=== PATIENT | male | born 1990 | race Caucasian/White ===

== ENCOUNTER 2017-10-09 06:02 | Day surgery (SDC) | payer OTHER ==
[2017-10-09] MEDS ORDERED: PROPOFOL 60 ML (07:22)
[2017-10-09] MEDS ORDERED: LIDOCAINE 2% (SDV) 5 ML INJ (07:22)
[2017-10-09] MEDS ORDERED: MIDAZOLAM 1 MG/ML 2 ML INJ (07:38)
== END 2017-10-09 11:20 | disposition home or self-care (01) ==
LOC: GIL 06:02
DX: K51.90 Ulcerative colitis, unspecified, without complications (principal)
CPT/HCPCS: 45378; 88305

== ENCOUNTER 2018-07-27 15:23 | Emergency (ER) | payer OTHER ==
[2018-07-27] MEDS: METHYLPREDNISOLONE 125 MG INJ IM (17:28)
== END 2018-07-27 17:33 | disposition home or self-care (01) ==
LOC: FTE 15:23
DX: K51.919 Ulcerative colitis, unspecified with unspecified complications (principal)
CPT/HCPCS: 96372; 99284-25

== ENCOUNTER 2019-01-26 11:57 | Emergency (ER) | payer OTHER ==
[2019-01-26] MEDS: ONDANSETRON 4 MG INJ IV (12:36)
[2019-01-26] MEDS: morphine 4 MG/ML VIAL IV (12:36)
[2019-01-26] MEDS: SOD CHLORIDE 0.9% 1,000 ML IV (12:36)
[2019-01-26 12:42] LABS: ADD MAN DIFF? NO
[2019-01-26 12:48] LABS: BASOPHIL # 0.1 10^3/ul (0.0-0.1); BASOPHILS % 0.7 % (0.0-2.0); EOSINOPHILS # 0.4 10^3/ul (0.0-0.5); EOSINOPHILS % 4.6 % (0.0-7.0); HEMATOCRIT 43.2 % (42.0-52.0); HEMOGLOBIN 13.8 g/dl (14.0-18.0); LYMPHOCYTES # 1.8 10^3/ul (0.8-2.9); LYMPHOCYTES % 20.1 % (15.0-51.0); MEAN CORPUSCULAR HEMOGLOBIN 26.7 pg (29.0-33.0); MEAN CORPUSCULAR HGB CONC 31.9 g/dl (32.0-37.0); MEAN CORPUSCULAR VOLUME 83.6 fl (82.0-101.0); MEAN PLATELET VOLUME 9.7 fl (7.4-10.4); MONOCYTE # 0.6 10^3/ul (0.3-0.9); MONOCYTES % 6.6 % (0.0-11.0); NEUTROPHIL # 6.2 10^3/ul (1.6-7.5); NEUTROPHILS % 67.8 % (39.0-77.0); PLATELET COUNT 289 10^3/UL (140-415); RED BLOOD COUNT 5.17 10^6/ul (4.70-6.10); RED CELL DISTRIBUTION WIDTH 15.5 % (11.5-14.5)
[2019-01-26 12:48] LABS: WHITE BLOOD COUNT 9.1 10^3/ul (4.8-10.8)
[2019-01-26 12:56] LABS: ADD UMIC YES; UR AMORPHOUS CRYSTAL MODERATE /HPF (NONE SEEN); UR ASCORBIC ACID NEGATIVE (NEGATIVE); UR BILIRUBIN (Dip) NEGATIVE (NEGATIVE); UR BLOOD (Dip) NEGATIVE (NEGATIVE); UR CLARITY CLOUDY (CLEAR); UR COLOR YELLOW (YELLOW); UR GLUCOSE (Dip) NEGATIVE (NEGATIVE); UR KETONES (Dip) TRACE mg/dL (NEGATIVE); UR LEUKOCYTE ESTERASE (Dip) NEGATIVE Leu/ul (NEGATIVE); UR MUCUS FEW /HPF (NONE SEEN); UR NITRITE (Dip) NEGATIVE (NEGATIVE); UR RBC 2 /HPF (0-5); UR SPECIFIC GRAVITY (Dip) 1.019 (1.003-1.030); UR TOTAL PROTEIN (Dip) NEGATIVE (NEGATIVE); UR UROBILINOGEN (Dip) NEGATIVE (NEGATIVE); UR WBC 3 /HPF (0-5)
[2019-01-26 13:07] LABS: ALANINE AMINOTRANSFERASE 21 IU/L (13-69); ALBUMIN 4.7 g/dl (3.3-4.9); ALKALINE PHOSPHATASE 100 IU/L (42-121); ANION GAP 9 (5-13); ASPARTATE AMINO TRANSFERASE 23 IU/L (15-46); BILIRUBIN,INDIRECT 0.3 mg/dl (0-1.1); BILIRUBIN,TOTAL 0.3 mg/dl (0.2-1.3); BLOOD UREA NITROGEN 15 mg/dl (7-20); CALCIUM 9.9 mg/dl (8.4-10.2); CARBON DIOXIDE 30 mmol/L (21-31); CHLORIDE 105 mmol/L (97-110); CREATININE 0.97 mg/dl (0.61-1.24); Estimated GFR > 60 mL/min (>60); GLUCOSE 101 mg/dl (70-220); LIPASE 94 U/L (23-300); POTASSIUM 4.7 mmol/L (3.5-5.1); SODIUM 144 mmol/L (135-144); TOTAL PROTEIN 8.6 g/dl (6.1-8.1)
[2019-01-26] MEDS: SOD CHLORIDE 0.9% 100 ML (13:55)
[2019-01-26] MEDS: IOHEXOL 300MG/ML 150 ML BTL (13:55)
== END 2019-01-26 14:57 | disposition home or self-care (01) ==
LOC: FTE 14:57
DX: K51.90 Ulcerative colitis, unspecified, without complications (principal)
CPT/HCPCS: 36415; 74177; 80053; 81001; 83690; 85025; 96374; 96375; 99285-25

== ENCOUNTER 2019-01-29 10:55 | Emergency (ER) | payer OTHER | END 2019-01-29 13:15 | disposition home or self-care (01) | LOC: FTE 10:55 | DX: K51.919 Ulcerative colitis, unspecified with unspecified complications (principal) | CPT/HCPCS: 99283; Z7502 ==

== ENCOUNTER 2019-05-13 06:25 | Day surgery (SDC) | payer OTHER ==
[2019-05-13] MEDS ORDERED: PROPOFOL 40 ML (08:41)
[2019-05-13] MEDS ORDERED: MIDAZOLAM 1 MG/ML 2 ML INJ (08:41)
== END 2019-05-13 14:21 | disposition home or self-care (01) ==
LOC: GIL 06:25
DX: K51.90 Ulcerative colitis, unspecified, without complications (principal)
CPT/HCPCS: 45378; 88305